=== PATIENT | female | born 1960 | race Caucasian/White ===

== ENCOUNTER 2016-12-11 17:37 | Emergency (ER) | payer MEDICAID ==
[2016-12-11] MEDS ORDERED: HYDROmorphone 1 MG INJECTION IM ONE (17:54)
[2016-12-11 17:55] VITALS: TEMP 97.6; BMI 27.2
--- NOTE | 2016-12-11 18:05 | EDPRACDOC ---
- General Chief Complaint: Fall Stated Complaint: ARM INJURY Time Seen by Provider: 12/11/16 17:56 Information Source: Patient Exam Limitations: No Limitations - History of Present Illness Onset: SOL[employer]ER HPI: PT PRESENTS STATING SHE TRIPPED AND FELL AND STRUCK HER LEFT ARM AND LEFT SHOULDER. STATES SHE IS UNABLE TO MOVE HER ARM OR SHOULDER DUE TO THE PAIN. PT PRESENTS WITH 2+ RADIAL PULSE, BRISK CAP REFILL, AND NEURO-VASCULAR INTACT. Pain Severity: Reports: Moderate Injuries/Pain Location: Reports: upper extremity Reason for Fall: Reports: lost balance Loss of Consciousness: no loss of consciousness Modifying Factors: improves with: immobilization Associated Symptoms (Fall): Reports: denies symptoms Allergies/Adverse Reactions: Allergies acetaminophen [From Percocet] Allergy (Verified 12/11/16 18:30) Nausea/Vomiting ciprofloxacin [From Cipro] Allergy (Verified 12/11/16 18:30) Nausea/Vomiting oxycodone [From Percocet] Allergy (Verified 12/11/16 18:30) Nausea/Vomiting Home Medications: Ambulatory Orders Hydrocodone/Acetaminophen [Lortab 5-325 mg Tablet] 1 each PO Q4 PRN #30 tablet 12/11/16 ED Past Medical History - History Reviewed Yes Nurses notes reviewed and agree except as marked EDM Review of Systems - Review of Systems ROS Negative Except as Marked: Yes All systems reviewed and were negative except as marked - Physical Exam Constitutional: Alert Oriented to: Time, Person, Place Last recorded Vital Signs: Last Vital Signs Temp 97.6 F 12/11/16 17:55 Pulse 86 12/11/16 17:55 Resp 18 12/11/16 17:55 BP 166/97 12/11/16 17:55 Pulse Ox 95 12/11/16 17:55 Oxygen Pulse Oxygen Saturation 95 O2 Device Oxygen Flow Rate Fraction of Inspired Oxygen ( FIO2) - HEENT Head: Normal ( normocephalic) Eye Exam: Normal (PERRL, EOMI, Sclera white) Oropharynx: Normal (Pharynx:Moist without exudate,Gums-no swelling) Nose: No Symptoms Reported (septum midline) Neck: Normal (FROM, trachea at midline) - Respiratory/Cardiovascular Respiratory: Normal - CTA (BBS clear to auscultation without adventitious sounds ) Cardiovascular: Normal (RRR without murmur, gallop or rub) - GI Auscultation: Normal (NABS) Palpation: Normal (Soft,No rebound or guarding, non distended) Tenderness: Non tender Carter's Sign: Negative Rectal Exam: Deferred - Musculoskeletal Back: Normal (Non-Tender) Extremities: Normal (Normal tone, Pulses 2+ No cyanosis or edema, FROM) - Integumentary Skin: Normal, Warm, Dry Lymphatics: Normal (no adenopathy) - Neurologic Memory Impaired: Normal Motor Function: Normal (Normal tone, Pulses 2+ No cyanosis or edema, FROM) Cranial Nerve: Normal (CN II-X11 intact sensation, strength 5/5) Cerebellar: Normal Mood Description: Normal Perception: Normal ED Injury/Fall Exam - Physical Exam Head Injury: no evidence of injury Extremity Exam: bony-point tenderness (LEFT ARM AND LEFT SHOULDER), pain with movement (LEFT ARM AND LEFT SHOULDER) Skin: Normal, Warm, Dry - [place] Coma Score Best Eye Response (Augusta): (4) open spontaneously Best Verbal Response (Jose): (5) oriented Best Motor Response (Jose): (6) obeys commands Jose Total: 15 - Differential Diagnosis Fall, Fracture Decision Time to Discharge: 19:08 - Departure Disposition: Home Condition: Stable Final Diagnosis: Accidental fall Humeral fracture Qualifiers: Encounter type: initial encounter Humerus Location: proximal Fracture type: closed Fracture morphology: unspecified fracture morphology Laterality: left Qualified Code(s): S42.202A - Unspecified fracture of upper end of left humerus , initial encounter for closed fracture Instructions: RICE: Routine Care for Injuries, Arm Fracture in Adults (ED) Education/Counseling Given To: Patient Education/Counseling Given Regarding: Diagnosis, Treatment, Prognosis, Follow Up Referrals: Roberto Tinajero DO [Staff Physician] - One Week Prescriptions: Hydrocodone/Acetaminophen [Lortab 5-325 mg Tablet] 1 each PO Q4 PRN #30 tablet PRN Reason: Pain Additional Instructions: ICE MUCH POSSIBLE. MAKE A FOLLOW UP APPOINTMENT WITH ORTHOPEDIC. WEAR SLING AT ALL TIMES.
--- NOTE | 2016-12-11 18:56 | DIRPT ---
CLINICAL DATA: Tripped and fell over a stone in a yard today. Complaining of right knee pain. EXAM: RIGHT KNEE - COMPLETE 4+ VIEW COMPARISON: None. FINDINGS: There is no evidence of fracture, dislocation, or joint effusion. There is no evidence of arthropathy or other focal bone abnormality. Soft tissues are unremarkable. IMPRESSION: Negative. Electronically Signed By: Dutch Jackson M.D. On: 12/11/2016 18:53
--- NOTE | 2016-12-11 18:59 | DIRPT ---
CLINICAL DATA: Pain following fall EXAM: LEFT SHOULDER - 2+ VIEW COMPARISON: None. FINDINGS: Oblique and Y scapular images were obtained. There is a comminuted fracture along the lateral aspect of the humeral head with mild displacement of fractures of the greater tuberosity. There is a nondisplaced fracture at proximal most aspect of the proximal humeral metaphysis with slight impaction. No other fractures. No dislocation. No appreciable joint space narrowing. IMPRESSION: Comminuted fracture of the greater tuberosity of the proximal humerus. There is also a nondisplaced fracture of the proximal most aspect of the proximal humeral metaphysis with slight impaction in this region. No other fractures. No dislocation. No appreciable arthropathy. Electronically Signed By: Ramu Pemberton III, M.D. On: 12/11/2016 18:57
--- NOTE | 2016-12-11 19:00 | DIRPT ---
CLINICAL DATA: Tripped and fell over stepping stone in yard today. Left shoulder pain. EXAM: LEFT HUMERUS - 2+ VIEW COMPARISON: None. FINDINGS: There is a left humeral neck fracture. Fracture extends to involve the greater tuberosity. No subluxation or dislocation. Minimal displacement. IMPRESSION: Left humeral neck fracture and greater tuberosity fracture Electronically Signed By: Johnnie Wilson M.D. On: 12/11/2016 18:57
[2016-12-11] MEDS ORDERED: HYDROCODONE 5 MG/ACETAMIN 325 MG TAB PO ONE (19:07)
[2016-12-11 19:24] VITALS: BP 151/80; PULSE 81
== END 2016-12-11 19:23 | disposition home or self-care (01) ==
LOC: ED 17:37
DX: S42.202A Unspecified fracture of upper end of left humerus, initial encounter for closed fracture (principal); W01.10XA Fall on same level from slipping, tripping and stumbling with subsequent striking against unspecified object, initial encounter; Y93.9 Activity, unspecified
CPT/HCPCS: 73030; 73060; 73564; 96372; 99283; J1170; J3490